=== PATIENT | female | born 1995 | race Caucasian/White ===

== ENCOUNTER 2017-05-31 21:19 | Emergency (ER) | payer OTHER ==
[~2017-05-31] VITALS: Ht 170.2 cm; Wt 68.1 kg
[2017-05-31] MEDS ORDERED: WELLBUTRIN XL150 M1 PO (21:36)
[2017-05-31] MEDS ORDERED: FIBER500 M1 PO (21:36)
[2017-05-31] MEDS ORDERED: CLARITIN10 M6 PO (21:36)
[2017-05-31] MEDS ORDERED: PRENATAL-U CAPS1 CAP PO (21:36)
[2017-05-31] MEDS ORDERED: BUSPIRONE HCL10 M2 PO (21:37)
== END 2017-05-31 22:10 ==
LOC: EDMED 21:19
DX: H57.12 Ocular pain, left eye (principal); J06.9 Acute upper respiratory infection, unspecified; F41.9 Anxiety disorder, unspecified; F32.9 Major depressive disorder, single episode, unspecified; Z79.899 Other long term (current) drug therapy